=== PATIENT | female | born 2000 | race Caucasian/White ===

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

== ENCOUNTER 2023-12-11 10:34 | Emergency (ER) | payer OTHER ==
[~2023-12-11] VITALS: Ht 165.1 cm; Wt 127.0 kg
[~2023-12-11 10:34] MED LIST: CEPHALEXIN500 M1 PO
[2023-12-11] MEDS ORDERED: PRENATA CHEWAB1 EACH PO (11:08)
== END 2023-12-11 11:45 | disposition home or self-care (01) ==
LOC: ED 10:34
DX: Z33.1 Pregnant state, incidental (principal); Z32.01 Encounter for pregnancy test, result positive